=== PATIENT | male | born 1935 | race Caucasian/White ===

== ENCOUNTER → 2016-12-25 | Outpatient (CLI) | payer OTHER ==
[~2016-12-25] MED LIST: AMBIEN 10 MG TA10 MG PO; AMLODIPINE BESY10 MG PO; ASPIRIN EC81 M1 PO; ATIVAN0.5 MG PO; CALCIUM 600 +1 EAC1 PO; CELEXA40 MG PO; CEPHALEXIN 500500 M1 PO; CITRACAL + D M1 EACH; COMBIVENT INH; CRESTOR10 MG PO; FISH OIL 1,0001 EAC5 PO; GLUCOSAMINE &1 EAC1 PO; HYDROCODONE-AC120 ML PO; HYDROCODONE-ACE15 ML PO; LISINOPRIL-HCT1 EACH PO; MELOXICAM7.5 MG PO; MUCINEX600 MG PO; NORCO 5-325 TA1 EACH PO; OMEGA 3-6-9 CO1 EACH PO; ONE DAILY FOR1 EACH PO; PREDNISONE50 MG PO; PRINZIDE 20-251 EACH PO; TOPROL XL100 MG PO; ZANAFLEX4 MG PO
== END ==
LOC: ULTRA 08:15
DX: N18.3 Chronic kidney disease, stage 3 (moderate) (principal); Z85.528 Personal history of other malignant neoplasm of kidney

== ENCOUNTER → 2017-08-27 | Outpatient (CLI) | payer OTHER | LOC: RAD 09:24 | DX: M25.562 Pain in left knee (principal) ==

== ENCOUNTER → 2017-08-31 | Outpatient (CLI) | payer OTHER | LOC: MRI 06:50 | DX: M48.061 Spinal stenosis, lumbar region without neurogenic claudication (principal); M51.36 Other intervertebral disc degeneration, lumbar region; M47.896 Other spondylosis, lumbar region; M25.48 Effusion, other site; R26.2 Difficulty in walking, not elsewhere classified; M62.81 Muscle weakness (generalized); M54.32 Sciatica, left side ==

== ENCOUNTER → 2018-05-20 | Outpatient (CLI) | payer OTHER | LOC: ULTRA 09:06 | DX: N28.1 Cyst of kidney, acquired (principal); C64.9 Malignant neoplasm of unspecified kidney, except renal pelvis; Z90.5 Acquired absence of kidney ==

== ENCOUNTER 2018-07-15 18:09 | Emergency (ER) | payer OTHER ==
[~2018-07-15] VITALS: Ht 175.3 cm; Wt 99.8 kg
[2018-07-15] MEDS ORDERED: MIRALAX17 GM PO (18:37)
[2018-07-15] MEDS ORDERED: TRAMADOL 50 MG50 MG PO (19:06)
[2018-07-15 19:38] VITALS: BP 170/83
== END 2018-07-15 19:40 | disposition home or self-care (01) ==
LOC: ER 18:09
DX: M54.42 Lumbago with sciatica, left side (principal); Z87.891 Personal history of nicotine dependence

== ENCOUNTER → 2018-07-30 | Outpatient (CLI) | payer OTHER ==
[~2018-07-30] VITALS: Ht 175.3 cm; Wt 88.5 kg
[~2018-07-30] MED LIST changes: +MIRALAX17 GM PO; +TRAMADOL 50 MG50 MG PO
--- NOTE | ~2018-07-30 | HPC ---
[facility] [address] [place] [address] PAIN MANAGEMENT CONSULTATION Name: CHANTALCLAUDE Isis Room #: REG [facility] Keaton#: [id number] Admission: 07/30/18 ������������������ Attend Phys: Nicole Pierre MD Discharge: ������������������ Date of : 39 Report #: [id number] THIS REPORT FOR: //name// CC: Bhupendra Pierre DATE OF SERVICE: 07/30/2018 CHIEF COMPLAINT: "Pain in my back. I was mowing the lawn on terrace." FOLLOWUP HISTORY: The patient is an 83-year-old gentleman who has been seen in the pain clinic in the past. He has had low back pain and trigger points performed. He had pain in his shoulder area as well as low back area. After trigger point injections he gleaned benefit from these. He recently was mowing his lawn. 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 After cutting the grass he noted some increased pain in his low back. It is not radiating down into his legs. There is no weakness in his lower extremity. He notes that if he pushes in a certain area of his low back area he can reproduce the pain and discomfort. He has been treating this conservatively. He has one kidney. He had renal cell carcinoma and had a nephrectomy. He is concerned about use of nonsteroidal anti-inflammatory medications. He has come to the pain clinic for evaluation with a hope of undergoing an injection into the affected area to help control his pain. ALLERGIES: No known drug allergies. CURRENT MEDICATIONS: MiraLax 17 grams, Citracal plus D maximum caplet 1 tablet, amlodipine 10 mg, fish oil 1000 mg, glucosamine/chondroitin, multivitamins, aspirin 81 mg, metoprolol 100 mg and Crestor 10 mg. PAIN CLINIC ASSESSMENT/PQRS: 1. History of osteoarthritis. The patient has some right upper extremity shoulder pain and discomfort. 2. Rheumatoid arthritis. The patient is not being treated for rheumatoid arthritis. 3. Height 5 feet 9 inches, weight 195 pounds, BMI is 28.8. 4. Vital signs; blood pressure 164/96, pulse 75, respiratory rate 16, room air saturation 100%. 5. Pain intensity 11/16. 6. Fall history: The patient has not fallen in the last 3 months. 7. Blood thinner. The patient is not on a blood thinning medication. 8. Hypertension. The patient is being treated for hypertension. 9. Opioids greater than 6 weeks. The patient receives medications from one source and he has been using tramadol. 10. Risk assessment tool, low for opioid use. 11. Functional assessment tool. [address] [address] PAIN MANAGEMENT CONSULTATION Name: CLAUDE CORNEJO Room #: REG [facility]#: [id number] Admission: 07/30/18 ������������������ Attend Phys: Nicole Pierre MD Discharge: ������������������ Date of : 37 Report #: [id number] 12. Recreational drug use: The patient denies. 13. Tobacco: The patient has never smoked. 14. Alcohol: The patient drinks alcoholic beverage about 3 per week. PHYSICAL EXAMINATION: GENERAL: The patient is a well-developed, well-nourished male. Appears his stated age. He is alert and oriented x 3. His affect is appropriate. Speech is fluent. HEENT: Normocephalic, atraumatic. Extraocular eye muscles intact. Sclerae nonicteric. Mucous membranes are moist. NECK: Without adenopathy or JVD. HEART: Regular rate. ABDOMEN: Nontender. Bowel sounds present. EXTREMITIES: Upper extremity muscle strength is judged to be 5/5 for the major muscle groups in the upper extremity. Lower extremity, the patient has pain in the lower portion of his back. Palpation in the area of the left posterior superior iliac spine area does reproduce pain and discomfort. The patient states that this does reproduce his discomfort. Lower extremity muscle strength is judged to be 5-/5 for the major muscle groups in the lower extremities. IMPRESSION: 1. Myofascial pain, low back area. 2. Diabetes tendency. The patient has not been treated for diabetes. 3. Hypertension. 4. 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 5. 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 RECOMMENDATIONS: We discussed treatment options with the patient. Risks and benefits of injections of the trigger point in the low back area were discussed. The patient has had injections in the past. He had pain, which was similar to this. Trigger point injections helped him to resolve his discomfort. He notes a worsening of his pain when he was pushing a lawnmower on an uneven surface. He feels that he may have strained it. He has had no complications from the past injection, but did glean significant benefit. He has returned today and would like to consider trigger point injections to the affected area. We have discussed the risks, benefits, which could include infection, increased muscle soreness, no improvement in pain, nerve damage and the patient elects to proceed. PROCEDURE NOTE: The patient was taken to the procedure area. He was assisted in getting on the examination table. Forward bending and resting with a pillow in his lap was performed. Palpation in the area of the left posterior superior iliac spine near the gluteus dianne and latissimus dorsi was performed. The patient states that this did reproduce his pain and discomfort. He remained in the pain clinic for an appropriate amount of time. His pain decreased after the [facility] [address] [place] [address] PAIN MANAGEMENT CONSULTATION Name: CLAUDE CORNEJO [id number] Admission: 07/30/18 ������������������ Attend Phys: Nicole Pierre MD Discharge: ������������������ Date of : 37 Report #: [id number] injection. The patient's back for the injection was sterilely prepped with a chlorhexidine solution. This was allowed to dry. A 0.25% bupivacaine was infiltrated into this area using a 25-gauge needle. The patient did state that this did reproduce his discomfort near the posterior superior iliac spine, gluteus dianne and the latissimus dorsi. Aspiration was negative. A total of 80 mg of Depo-Medrol with 8 mL of 0.5% bupivacaine was injected. The patient tolerated the procedure well. Pain was 3 at the time of discharge. He will follow up in the future as needed. We would like to thank you for letting us participate in his care. We hope he continues to improve. ��������������������������������������������� ���������������������������������������� By: ��������������������������������������������� [id number] Nicole Pierre MD /nt
[2018-07-30 09:20] VITALS: BP 164/96
--- NOTE | 2018-07-30 09:32 | NUR ---
Pain Clinic Assessment: 1. History of Osteoarthritis: Right Upper Extremity Left Upper Extremity History of Rheumatoid Arthritis: Not Applicable 2. Height: 5 ft. 9 in. 175.3 cm. Weight: 195.2 lb. oz. 88.542 kg. Patient's BMI: 28.8 3. Vital Signs: BP: 164/96 Pulse: 75 Resp: 16 Temp: 02 Sat: 100 ECG Mon: 4. Pain Intensity: 9 5. Fall Risk: Dizziness: N Needs help standing or walking: N Fallen in the last 3 months: N Fall risk comments: 6. Patient on Blood Thinner: None 7. History of Hypertension: Y 8. Opioid Therapy greater than 6 weeks: Y Opiate Contract Signed: 9. Risk Assessment Tool Provided: 10. Functional Assessment Tool: 11. Recreational Drug Use: Never Drug Type: Tobacco Use: Never Smoker Tobacco Type: Amount or Packs/day: How Many Years: Alcohol Use: Yes Frequency: Weekly Quant: 3
== END | disposition home or self-care (01) ==
LOC: PAIN 06:47
DX: M79.18 Myalgia, other site (principal); M48.07 Spinal stenosis, lumbosacral region; M48.062 Spinal stenosis, lumbar region with neurogenic claudication; G89.29 Other chronic pain; I10 Essential (primary) hypertension; E11.9 Type 2 diabetes mellitus without complications; Z79.899 Other long term (current) drug therapy; Z98.890 Other specified postprocedural states; Z79.82 Long term (current) use of aspirin

== ENCOUNTER → 2018-08-11 | Outpatient (CLI) | payer OTHER ==
[~2018-08-11] VITALS: Ht 175.3 cm; Wt 86.9 kg
[~2018-08-11] MED LIST changes: +FLEXERIL PO; +HYDROCODON-ACE1 EAC7 PO
--- NOTE | ~2018-08-11 | HPC ---
[facility] [address] [place] [address] PAIN MANAGEMENT CONSULTATION Name: CLAUDE CORNEJO Isis [id number] Admission: 08/11/18 ������������������ Attend Phys: Nicole Pierre MD Discharge: ������������������ Date of : 37 Report #: [id number] THIS REPORT FOR: //name// CC: Bhupendra Pierre DATE OF SERVICE: 08/11/2018 CHIEF COMPLAINT: Here because my back is still having some pain. HISTORY: The patient is an 83-year-old gentleman, who has been seen in the pain clinic. He has a history of low back pain. He has trigger points in the low back area. He also has some pain in his right shoulder. He has gleaned benefits from trigger point injections. He recently underwent an injection in the low back area. He had been cutting his lawn. The lawn is on ____/angle. Since that, he noticed some pain and discomfort in the lower portion of his back on the left side. After the last trigger point injection, he has noted some improvement, but feels that the pain may have changed. May have had a second trigger point in the lower portion of his back. He still rates his pain as a 7-8/10. He has returned today for evaluation. CURRENT MEDICATIONS: MiraLax 17 grams, Citracal Plus, amlodipine 10 mg, fish oil 1000 mg, glucosamine/chondroitin, multivitamins, aspirin 81 mg, metoprolol 100 mg, and Crestor 10 mg. ALLERGIES: No known drug allergies. PAIN CLINIC ASSESSMENT AND PQRS: 1. History of osteoarthritis. The patient has some arthritis in his right shoulder. He has not been treated for rheumatoid arthritis. 2. Pain intensity is 7-8/10. 3. Fall history: The patient has not fallen in the last 3 months. 4. Blood thinner. The patient is on a blood thinning medication. 5. Hypertension. The patient is being treated for hypertension. 6. Opioids greater than 6 weeks. The patient is not on an opioid regimen. 7. Risk assessment tool, low for opioid use. 8. Functional assessment tool. 9. Recreational drug use. The patient denies use of recreational drugs. 10. Tobacco: The patient drinks alcoholic beverages on special occasion. PHYSICAL EXAMINATION: GENERAL: The patient is a well-developed, well-nourished gentleman. He is alert and oriented x 3. His affect is appropriate. Speech is fluent. Height is 5 feet 9 inches, weight is 191 pounds, and BMI is 28.3. VITAL SIGNS: Blood pressure is 169/99, pulse is 74, respiratory rate is 16, and room air saturation is 97%. [place] [address] PAIN MANAGEMENT CONSULTATION Name: CLAUDE CORNEJO Room #: REG [facility] Pugh#: [id number] Admission: 08/11/18 ������������������ Attend Phys: Nicole Pierre MD Discharge: ������������������ Date of : 39 Report #: [id number] HEENT: Normocephalic, atraumatic. Extraocular eye muscles intact. Sclerae nonicteric. Mucous membranes are moist. The patient is wearing glasses. NECK: Without adenopathy or JVD. HEART: Regular rate. S1, S2. ABDOMEN: Nontender. Bowel sounds present. EXTREMITIES: Upper extremity muscle strength is judged to be 5/5 for the major muscle groups in the upper extremity, 5-/5 for the right upper extremity and shoulder area. The patient has pain and discomfort in the left posterior superior iliac spine area. Palpation in this area does reproduces pain. He feels that the pain has changed somewhat in position as it related to the last injection. He still has pain, which is still somewhat problematic. Lower extremity muscle strength is judged to be 5-/5 for the major muscle groups in the lower extremity without sensory change. IMPRESSION: 1. Myofascial pain, low back area. 2. Diabetes tendency. The patient has not been treated for diabetes. 3. Hypertension. 4. Left neural foraminal stenosis at L1-L2 and L5-S1 and to a lesser degree L4-L5. 5. Mild central spinal stenosis with encroachment at L1-L2, L3, and L4. RECOMMENDATIONS: We have discussed treatment options with the patient. At this juncture, he is still having some pain. He has noted an improvement in his pain. Overall, it involves the lower portion of his back. Certain activities can exacerbate it. He feels that there was a benefit from the last injection. At this juncture, we will try to provide the patient more pain relief by providing him with Flexeril. He will try 10 mg one p.o. q.8 hours p.r.n. to note the efficacy of this and help in decrease his pain. He has also been given 30 hydrocodone tablets to take in the interim should his pain become problematic. He will return in the future with possibility of another trigger point injection in the future. He will continue with stretching. We have discussed the use of a tennis ball to have the patient lie on it and roll to help massage the trigger point area. He will call us if he has any concerns. We would like to thank you for letting us to participate in his care. We hope he continues to improve. ��������������������������������������������� ���������������������������������������� By: ��������������������������������������������� [phone] MD EMELY Gregory
[2018-08-11 08:36] VITALS: BP 169/99
--- NOTE | 2018-08-11 08:38 | NUR ---
Pain Clinic Assessment: 1. History of Osteoarthritis: Right Upper Extremity Left Upper Extremity History of Rheumatoid Arthritis: Not Applicable 2. Height: 5 ft. 9 in. 175.3 cm. Weight: 191.6 lb. oz. 86.909 kg. Patient's BMI: 28.3 3. Vital Signs: BP: 169/99 Pulse: 74 Resp: 16 Temp: 02 Sat: 97 ECG Mon: 4. Pain Intensity: 7-8 5. Fall Risk: Dizziness: N Needs help standing or walking: N Fallen in the last 3 months: N Fall risk comments: 6. Patient on Blood Thinner: None 7. History of Hypertension: Y 8. Opioid Therapy greater than 6 weeks: Y Opiate Contract Signed: 9. Risk Assessment Tool Provided: 10. Functional Assessment Tool: 11. Recreational Drug Use: Never Drug Type: Tobacco Use: Never Smoker Tobacco Type: Amount or Packs/day: How Many Years: Alcohol Use: Yes Frequency: Special Occasions Quant:
== END ==
LOC: PAIN 06:47
DX: M48.062 Spinal stenosis, lumbar region with neurogenic claudication (principal); M79.10 Myalgia, unspecified site; I10 Essential (primary) hypertension; E11.9 Type 2 diabetes mellitus without complications; Z79.899 Other long term (current) drug therapy

== ENCOUNTER → 2018-10-12 | Outpatient (CLI) | payer OTHER ==
[2018-10-12 13:13] LABS: CREATININE 1.2 mg/dL (0.7-1.3)
== END ==
LOC: CAT 12:20
PROVIDERS: Internal Medicine
DX: M47.812 Spondylosis without myelopathy or radiculopathy, cervical region (principal); M46.02 Spinal enthesopathy, cervical region; G31.9 Degenerative disease of nervous system, unspecified; G45.9 Transient cerebral ischemic attack, unspecified

== ENCOUNTER → 2019-12-09 | Outpatient (CLI) | payer OTHER ==
[2019-12-09 11:38] LABS: CALCIUM 8.8 mg/dL (8.5-10.1); CREATININE 1.2 mg/dL (0.7-1.3); POTASSIUM 4.5 mmol/L (3.5-5.1)
[2019-12-09 11:39] LABS: CALCIUM 8.9 mg/dL (8.5-10.1); CREATININE 1.3 mg/dL (0.7-1.3)
== END ==
LOC: LAB 10:33
PROVIDERS: ATTEND Internal Medicine Nephrology
DX: E83.52 Hypercalcemia (principal); N18.32 Chronic kidney disease, stage 3b

== ENCOUNTER → 2019-12-29 | Outpatient (CLI) | payer OTHER | LOC: SJCVC 10:07 | PROVIDERS: ATTEND Internal Medicine | DX: R94.31 Abnormal electrocardiogram [ECG] [EKG] (principal); I44.4 Left anterior fascicular block; R06.00 Dyspnea, unspecified; I35.0 Nonrheumatic aortic (valve) stenosis; R78.5 Finding of other psychotropic drug in blood; E11.9 Type 2 diabetes mellitus without complications; I11.9 Hypertensive heart disease without heart failure ==

== ENCOUNTER → 2020-01-19 | Outpatient (CLI) | payer OTHER | LOC: SJCVCIMAG 14:18 | PROVIDERS: ATTEND Internal Medicine | DX: I08.8 Other rheumatic multiple valve diseases (principal); I27.20 Pulmonary hypertension, unspecified; I49.3 Ventricular premature depolarization; R00.0 Tachycardia, unspecified; E11.9 Type 2 diabetes mellitus without complications; I10 Essential (primary) hypertension; E78.5 Hyperlipidemia, unspecified; Z79.899 Other long term (current) drug therapy ==

== ENCOUNTER → 2020-02-29 | Outpatient (CLI) | payer OTHER | LOC: SJCVC 14:20 | PROVIDERS: ATTEND Internal Medicine | DX: R94.31 Abnormal electrocardiogram [ECG] [EKG] (principal); I45.10 Unspecified right bundle-branch block; I11.0 Hypertensive heart disease with heart failure; I35.0 Nonrheumatic aortic (valve) stenosis; E78.5 Hyperlipidemia, unspecified; E11.9 Type 2 diabetes mellitus without complications; C64.1 Malignant neoplasm of right kidney, except renal pelvis; Z87.891 Personal history of nicotine dependence; Z72.89 Other problems related to lifestyle; Z79.899 Other long term (current) drug therapy ==

== ENCOUNTER 2020-04-18 14:15 | Emergency (ER) | payer OTHER ==
[~2020-04-18] VITALS: Ht 175.3 cm; Wt 83.9 kg
[2020-04-18 15:52] VITALS: BP 164/86
--- NOTE | 2020-04-19 07:25 | EKG ---
[address] [place] [address] ELECTROCARDIOGRAM REPORT Name: CHANTALCLAUDE Isis [facility] [id number] Admission: 04/18/20 Attend Phys: Discharge: 04/18/20 Date of : 39 Report #: [id number] 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 : 1935 Requested By: Nathan Wilkerson Order Number: [id number] MD: Donato Barbour Measurements Intervals [place] Rate: 71 P: NE: QRS: -57 QRSD: 108 T: 69 QT: 399 QTc: 434 Interpretive Statements NSR, Artifact Left anterior fascicular block Abnormal R-wave progression, early transition Nonspecific T abnormalities, lateral leads Baseline wander in lead(s) V1 Compared to ECG 05/01/2012 15:54:16 Left anterior fascicular block now present T-wave abnormality now present Left-axis deviation no longer present Electronically Signed On 04-19-2020 7:25:12 [employer]AMIN[employer] by Donato Barbour [email or web address] <ELECTRONICALLY SIGNED> By: Donato Barbour MD, FAC 04/19/20 0725 [id number] Donato Barbour MD, FAC /EPI
== END 2020-04-18 15:53 | disposition home or self-care (01) ==
LOC: ER 14:15
DX: R05 Cough (principal); Z87.891 Personal history of nicotine dependence; Z79.82 Long term (current) use of aspirin; Z79.899 Other long term (current) drug therapy

== ENCOUNTER → 2020-04-23 | Outpatient (CLI) | payer OTHER | LOC: CAT 08:47 | PROVIDERS: ATTEND Internal Medicine | DX: I35.0 Nonrheumatic aortic (valve) stenosis (principal); I25.10 Atherosclerotic heart disease of native coronary artery without angina pectoris; M25.78 Osteophyte, vertebrae; J98.4 Other disorders of lung ==

== ENCOUNTER → 2020-06-13 | Outpatient (CLI) | payer OTHER ==
[~2020-06-13] VITALS: Ht 175.3 cm; Wt 84.6 kg
[~2020-06-13] MED LIST changes: +ZINC10 MG PO
[2020-06-13 09:03] VITALS: BP 172/75
--- NOTE | 2020-06-13 09:10 | NUR ---
Pain Clinic Assessment: 1. History of Osteoarthritis: Right Upper Extremity Left Upper Extremity History of Rheumatoid Arthritis: Not Applicable 2. Height: 5 ft. 9 in. 175.3 cm. Weight: 186.4 lb. oz. 84.551 kg. Patient's BMI: 27.5 3. Vital Signs: BP: 172/75 Pulse: 75 Resp: 16 Temp: 02 Sat: 100 ECG Mon: 4. Pain Intensity: 8 5. Fall Risk: Dizziness: Y Needs help standing or walking: N Fallen in the last 3 months: N Fall risk comments: 6. Patient on Blood Thinner: None 7. History of Hypertension: Y 8. Opioid Therapy greater than 6 weeks: Y Opiate Contract Signed: 9. Risk Assessment Tool Provided: 10. Functional Assessment Tool: 11. Recreational Drug Use: Never Drug Type: Tobacco Use: Never Smoker Tobacco Type: Amount or Packs/day: How Many Years: Alcohol Use: No Frequency: Quant:
== END | disposition home or self-care (01) ==
LOC: PAIN 06:44
PROVIDERS: ATTEND Anesthesiology Pain Medicine
DX: M79.18 Myalgia, other site (principal); M48.062 Spinal stenosis, lumbar region with neurogenic claudication; I10 Essential (primary) hypertension; E11.9 Type 2 diabetes mellitus without complications; G89.29 Other chronic pain; Z98.890 Other specified postprocedural states; Z79.899 Other long term (current) drug therapy; Z20.822 Contact with and (suspected) exposure to COVID-19

== ENCOUNTER → 2020-06-28 | Outpatient (CLI) | payer OTHER | LOC: SJCVC 10:41 | PROVIDERS: ATTEND Internal Medicine | DX: R94.31 Abnormal electrocardiogram [ECG] [EKG] (principal); I35.0 Nonrheumatic aortic (valve) stenosis; I10 Essential (primary) hypertension; E78.5 Hyperlipidemia, unspecified; E11.9 Type 2 diabetes mellitus without complications; C64.1 Malignant neoplasm of right kidney, except renal pelvis; Z98.890 Other specified postprocedural states; Z79.899 Other long term (current) drug therapy; Z86.16 Personal history of COVID-19; Z87.891 Personal history of nicotine dependence ==

== ENCOUNTER → 2020-08-29 | Outpatient (CLI) | payer OTHER | LOC: SJCVC 12:17 | PROVIDERS: ATTEND Internal Medicine | DX: R94.31 Abnormal electrocardiogram [ECG] [EKG] (principal); I35.0 Nonrheumatic aortic (valve) stenosis; I10 Essential (primary) hypertension; E78.5 Hyperlipidemia, unspecified; E11.9 Type 2 diabetes mellitus without complications; C64.1 Malignant neoplasm of right kidney, except renal pelvis; Z90.5 Acquired absence of kidney; Z79.899 Other long term (current) drug therapy; Z86.16 Personal history of COVID-19; Z85.528 Personal history of other malignant neoplasm of kidney; Z87.891 Personal history of nicotine dependence ==

== ENCOUNTER → 2020-12-25 | Outpatient (CLI) | payer OTHER | LOC: MRI 10:08 | PROVIDERS: ATTEND Internal Medicine | DX: M47.812 Spondylosis without myelopathy or radiculopathy, cervical region (principal); M62.81 Muscle weakness (generalized); R20.2 Paresthesia of skin; Z85.528 Personal history of other malignant neoplasm of kidney ==

== ENCOUNTER → 2021-02-05 | Outpatient (CLI) | payer OTHER | LOC: SJCVCIMAG 08:31 | PROVIDERS: ATTEND Internal Medicine | DX: I08.3 Combined rheumatic disorders of mitral, aortic and tricuspid valves (principal); R94.31 Abnormal electrocardiogram [ECG] [EKG]; I11.9 Hypertensive heart disease without heart failure; I44.0 Atrioventricular block, first degree; C64.1 Malignant neoplasm of right kidney, except renal pelvis; E78.5 Hyperlipidemia, unspecified; E11.9 Type 2 diabetes mellitus without complications; Z87.891 Personal history of nicotine dependence; Z79.899 Other long term (current) drug therapy; Z72.89 Other problems related to lifestyle ==

== ENCOUNTER → 2021-03-26 | Outpatient (CLI) | payer OTHER | LOC: SJCVC 10:31 | PROVIDERS: ATTEND Internal Medicine | DX: R94.31 Abnormal electrocardiogram [ECG] [EKG] (principal); I44.0 Atrioventricular block, first degree; I49.1 Atrial premature depolarization; I35.0 Nonrheumatic aortic (valve) stenosis; I10 Essential (primary) hypertension; E78.5 Hyperlipidemia, unspecified; E11.9 Type 2 diabetes mellitus without complications; C64.1 Malignant neoplasm of right kidney, except renal pelvis; Z87.891 Personal history of nicotine dependence; Z72.89 Other problems related to lifestyle; Z79.899 Other long term (current) drug therapy; Z86.16 Personal history of COVID-19 ==